=== PATIENT | male | born 1985 | race Caucasian/White ===

== ENCOUNTER → 2017-11-05 15:04 | Outpatient (CLI) | payer BC, SELFPAY ==
--- NOTE | 2017-11-05 14:56 | DI.REPORT_ITS ---
SYMPTOMS/DIAGNOSIS: LEFT DISTAL TIBIAL FX S/P OPEN REDUCTION AND INTERNAL FIXATION LEFT ANKLE: Three views. Comparisons are 07/02/17 and 08/15/17. There is again seen a sideplate and screws transfixing the distal left tibial fracture. No evidence of hardware failure is seen. The lucencies are still present in the distal tibia. This may represent an incompletely or non-united fracture. There is again seen a fracture through the distal left fibula. No change in alignment of the fracture is seen. There has been some healing of the fracture, although the fracture line still persists. If there is concern for non-union, a CT scan may be considered for further evaluation. There is soft tissue swelling about the distal leg and ankle noted.
== END ==
PROVIDERS: PCP Family Medicine; Visit Provider Student in an Organized Health Care Education/Training Program
DX: S82.392D Other fracture of lower end of left tibia, subsequent encounter for closed fracture with routine healing (principal)
CPT/HCPCS: 73610